=== PATIENT | female | born 1980 ===

== ENCOUNTER → 2018-07-30 06:00 | Outpatient (CLI) | payer OTHER ==
[~2018-07-30 06:00] MED LIST: GREEN TEA EXTR250 MG PO
== END | disposition home or self-care (01) ==
LOC: LAB 06:00 → CIR.AMB 08-20 06:55 → EDSTATUS 08-20 11:15 → CIR.AMB 08-20 11:15
DX: R79.89 Other specified abnormal findings of blood chemistry (principal); Z32.01 Encounter for pregnancy test, result positive; D64.89 Other specified anemias; R79.1 Abnormal coagulation profile; N39.0 Urinary tract infection, site not specified; Z01.818 Encounter for other preprocedural examination; R10.2 Pelvic and perineal pain; N84.0 Polyp of corpus uteri